=== PATIENT | male | born 1955 | race African-American/Black ===

== ENCOUNTER 2017-08-24 15:10 | Inpatient (IN) | payer MEDICARE, OTHER ==
[~2017-08-24] VITALS: Ht 165.1 cm; Wt 86.2 kg
[2017-08-24 16:21] LABS: Potassium 3.1 mmol/L (3.5-5.1)
[2017-08-24 16:25] LABS: Albumin 3.3 g/dL (3.4-5.0); BUN/Creatinine Ratio 14.2
[2017-08-24 16:33] LABS: Basophils # (auto) 0 uL; Basophils % (auto) 0.4 % (0.0-2.0); Eosinophils # (auto) 0 uL; Hematocrit 43.1 % (41.0-53.0); Hemoglobin 14.4 g/dL (13.5-17.5); Lymphocytes # (auto) 0.4 uL; Lymphocytes % (auto) 6.7 % (10.0-50.0); Mean Corpuscular Hemoglobin 27.3 pg (28.0-32.0); Mean Corpuscular Hgb Conc. 33.4 g/dL (32.0-36.0); Mean Corpuscular Volume 81.6 fL (80.0-100.0); Monocytes # (auto) 0.4 uL; Monocytes % (auto) 7.8 % (0.0-12.0); Neutrophils # (auto) 4.5 uL; Neutrophils % (auto) 85.1 % (37.0-80.0); Nucleated Red Blood Cells % 0.1 %; Platelet Count (auto) 187 10^3/uL (140-450); Red Blood Cells 5.28 10^6/uL (4.5-5.90); Red Cell Distribution Width 15.9 % (11.8-14.3); White Blood Cell 5.2 10^3/uL (4.4-10.8)
[2017-08-24 16:49] LABS: Bilirubin, Total 0.8 mg/dL (0.2-1.0); Total Protein 6.9 g/dL (6.4-8.2)
[2017-08-24 17:34] LABS: Magnesium 2.5 mg/dL (1.6-2.6)
[2017-08-24 17:57] LABS: INR 0.89 (0.9-1.15); Partial Thromboplastin Time 32.9 sec (22.64-33.71); Prothrombin Time 9.7 sec (9.37-12.3)
[2017-08-24 19:56] LABS: Urine Bacteria NONE SEEN /hpf (None Seen); Urine Blood TRACE /uL (Negative); Urine Hyaline Cast FEW /lpf (0 - 2); Urine Mucus FEW (None Seen); Urine Specific Gravity 1.023 (1.001-1.035); Urine WBC 54 /hpf (0 - 3)
[2017-08-24] MEDS ORDERED: cefTRIAXone 1GM/10ml IVPUSH 10 ML IV ONE (20:45)
[2017-08-24] MEDS ORDERED: DOCUSATE SOD 100 MG CAP PO PRN (20:45)
[2017-08-24] MEDS ORDERED: ASPirin-EC 81 mg tab PO ONE (20:45)
[2017-08-24] MEDS ORDERED: SODIUM CHLORIDE 0.9% 500 ML IV ONE (20:45)
[2017-08-24] MEDS ORDERED: TEMAZEPAM 15 MG CAP PO PRN (20:45)
[2017-08-24] MEDS ORDERED: NITROGLYCERIN 0.4 MG SL TAB SL PRN (20:45)
[2017-08-24] MEDS ORDERED: HYDROcodone-ACET 5/325MG TAB PO PRN (20:45)
[2017-08-24] MEDS ORDERED: POTASSIUM CHL 20 Meq TABLET PO ONE (20:45)
[2017-08-24] MEDS ORDERED: ONDANSETRON HCL 4 MG/2 ML VIAL IV PRN (20:45)
[2017-08-24] MEDS ORDERED: MORPHINE SULFATE 4 MG/ML SYR/VIAL IV PRN (20:45)
[2017-08-24] MEDS: SODIUM CHLORIDE 0.9% 1,000 ML IV SCH (21:05)
[2017-08-24 22:54] VITALS: BP 134/70
[2017-08-24 23:21] VITALS: BP 134/70
[2017-08-25 04:53] VITALS: BP 98/69
[2017-08-25 06:25] LABS: Basophils # (auto) 0 uL; Basophils % (auto) 0.4 % (0.0-2.0); Eosinophils # (auto) 0 uL; Eosinophils % (auto) 0.1 % (0.0-7.0); Hematocrit 41.3 % (41.0-53.0); Hemoglobin 13.5 g/dL (13.5-17.5); Lymphocytes # (auto) 0.4 uL; Lymphocytes % (auto) 6.6 % (10.0-50.0); Mean Corpuscular Hemoglobin 27.1 pg (28.0-32.0); Mean Corpuscular Hgb Conc. 32.6 g/dL (32.0-36.0); Mean Corpuscular Volume 83.4 fL (80.0-100.0); Monocytes # (auto) 0.5 uL; Monocytes % (auto) 8.9 % (0.0-12.0); Neutrophils # (auto) 4.7 uL; Nucleated Red Blood Cells % 0.2 %; Platelet Count (auto) 148 10^3/uL (140-450); Red Blood Cells 4.96 10^6/uL (4.5-5.90); Red Cell Distribution Width 16.1 % (11.8-14.3); White Blood Cell 5.5 10^3/uL (4.4-10.8)
[2017-08-25 06:41] LABS: Albumin 2.9 g/dL (3.4-5.0); BUN/Creatinine Ratio 21.5; Calcium 7.4 mg/dL (8.5-10.1); Potassium 3.3 mmol/L (3.5-5.1)
[2017-08-25 06:44] LABS: Bilirubin, Total 0.3 mg/dL (0.2-1.0); Total Protein 6.4 g/dL (6.4-8.2)
[2017-08-25 08:00] VITALS: BP 129/73
[2017-08-25 08:43] VITALS: BP 129/73
[2017-08-25] MEDS: cefTRIAXone 1GM/10ml IVPUSH 10 ML IV SCH (09:33)
[2017-08-25] MEDS: ENOXAPARIN SOD 40 MG/0.4 ML SYRINGE SC SCH (09:35)
[2017-08-25] MEDS: PANTOPRAZOLE 40 MG TAB PO SCH (09:36)
[2017-08-25] MEDS ORDERED: ENOXAPARIN SOD 30 MG/0.3 ML SYRINGE SC SCH (10:00)
[2017-08-25] MEDS ORDERED: POTASSIUM CHL 20 Meq TABLET PO ONE (10:45)
[2017-08-25] MEDS: SODIUM CHLORIDE 0.9% 1,000 ML IV SCH (11:27)
[2017-08-25] MEDS: ACETAMINOPHEN 325 MG TAB PO PRN ×2 (11:36→18:10)
[2017-08-25 13:00] VITALS: BP 114/76
[2017-08-25 17:10] VITALS: BP 134/90
[2017-08-25 22:00] VITALS: BP 121/84
[2017-08-25] MEDS ORDERED: ATORVASTATIN 20 MG TAB PO SCH (22:00)
[2017-08-26 05:00] VITALS: BP 126/75
[2017-08-26] MEDS: SODIUM CHLORIDE 0.9% 1,000 ML IV SCH (05:47)
[2017-08-26 06:29] LABS: Basophils # (auto) 0 uL; Basophils % (auto) 0.2 % (0.0-2.0); Eosinophils # (auto) 0 uL; Hematocrit 37.4 % (41.0-53.0); Hemoglobin 12.4 g/dL (13.5-17.5); Lymphocytes # (auto) 0.8 uL; Lymphocytes % (auto) 14.5 % (10.0-50.0); Mean Corpuscular Hemoglobin 27.4 pg (28.0-32.0); Mean Corpuscular Hgb Conc. 33.1 g/dL (32.0-36.0); Mean Corpuscular Volume 82.9 fL (80.0-100.0); Monocytes # (auto) 0.6 uL; Monocytes % (auto) 10.6 % (0.0-12.0); Neutrophils % (auto) 74.7 % (37.0-80.0); Platelet Count (auto) 131 10^3/uL (140-450); Red Blood Cells 4.51 10^6/uL (4.5-5.90); Red Cell Distribution Width 16.3 % (11.8-14.3); White Blood Cell 5.3 10^3/uL (4.4-10.8)
[2017-08-26 06:44] LABS: BUN/Creatinine Ratio 19.8; Calcium 7.7 mg/dL (8.5-10.1); Magnesium 2.3 mg/dL (1.6-2.6); Potassium 3.8 mmol/L (3.5-5.1)
[2017-08-26 08:51] VITALS: BP 130/87
[2017-08-26] MEDS: PANTOPRAZOLE 40 MG TAB PO SCH (09:15)
[2017-08-26] MEDS: ENOXAPARIN SOD 40 MG/0.4 ML SYRINGE SC SCH (09:15)
[2017-08-26] MEDS: cefTRIAXone 1GM/10ml IVPUSH 10 ML IV SCH (09:16)
[2017-08-26] MEDS ORDERED: LISINOPRIL 5 MG TAB PO SCH (12:00)
[2017-08-26] MEDS ORDERED: CARVEDILOL 3.125 MG TAB PO SCH (12:00)
[2017-08-26 12:19] VITALS: BP 126/62
== END 2017-08-26 13:45 | disposition home or self-care (01) | DRG 314 ==
LOC: ER 15:24 → TELE 15:25 → TELE-EAST 22:32
PROVIDERS: ADMIT Nurse Practitioner; ATTEND Internal Medicine
DX: I95.89 Other hypotension (principal); N17.0 Acute kidney failure with tubular necrosis; N39.0 Urinary tract infection, site not specified; E86.9 Volume depletion, unspecified; E87.6 Hypokalemia; E78.5 Hyperlipidemia, unspecified; I70.0 Atherosclerosis of aorta; J44.9 Chronic obstructive pulmonary disease, unspecified; I08.0 Rheumatic disorders of both mitral and aortic valves; G89.29 Other chronic pain; M54.9 Dorsalgia, unspecified; F17.210 Nicotine dependence, cigarettes, uncomplicated; Z82.49 Family history of ischemic heart disease and other diseases of the circulatory system
CPT/HCPCS: 36415; 71045; 80048; 80053; 81001; 82962; 83735; 83880; 84443; 84484; 85025; 85610; 85730; 93005; 93306; 94761; 96361; 96374

== ENCOUNTER 2017-09-02 12:35 | Inpatient (IN) | payer OTHER, MEDICAID ==
[~2017-09-02] VITALS: Ht 162.6 cm; Wt 79.1 kg
[2017-09-02 14:24] LABS: Basophils # (auto) 0 uL; Eosinophils # (auto) 0 uL; Eosinophils % (auto) 0.3 % (0.0-7.0); Hemoglobin 13.7 g/dL (13.5-17.5); Monocytes # (auto) 0.8 uL; Nucleated Red Blood Cells % 0.1 %; Platelet Count (auto) 389 10^3/uL (140-450)
[2017-09-02 14:26] LABS: Basophils % (auto) 0.2 % (0.0-2.0); Lymphocytes # (auto) 1.2 uL; Lymphocytes % (auto) 12.4 % (10.0-50.0); Mean Corpuscular Hemoglobin 26.8 pg (28.0-32.0); Mean Corpuscular Hgb Conc. 32.7 g/dL (32.0-36.0); Mean Corpuscular Volume 82.1 fL (80.0-100.0); Monocytes % (auto) 8.3 % (0.0-12.0); Neutrophils # (auto) 7.8 uL; Neutrophils % (auto) 78.8 % (37.0-80.0); Red Blood Cells 5.12 10^6/uL (4.5-5.90); White Blood Cell 9.9 10^3/uL (4.4-10.8)
[2017-09-02 14:54] LABS: Alanine Aminotransferase 23 U/L (16-61); Albumin 3.5 g/dL (3.4-5.0); Alkaline Phosphatase 82 U/L (45-117); Anion Gap 10 (5-15); Aspartate Aminotransferase 15 U/L (15-37); BUN/Creatinine Ratio 14.9; Bilirubin, Total 0.4 mg/dL (0.2-1.0); Blood Urea Nitrogen 14 mg/dL (7-18); Calcium 8.6 mg/dL (8.5-10.1); Carbon Dioxide 23 mmol/L (21-32); Chloride 106 mmol/L (98-107); GFR African American 105 mL/min; GFR Non-African American 87 mL/min; Glucose 90 mg/dL (74-106); Magnesium 2.7 mg/dL (1.6-2.6); Potassium 3.9 mmol/L (3.5-5.1); Sodium 139 mmol/L (136-145)
[2017-09-02] MEDS ORDERED: methylPREDNISolone SOD SUCC 125 MG/2 ML VL IV ONE (15:00)
[2017-09-02] MEDS ORDERED: FUROSEMIDE 40 MG/4 ML VIAL IV ONE (16:15)
[2017-09-02] MEDS ORDERED: POTASSIUM CHL 20 Meq TABLET PO ONE (16:45)
[2017-09-02] MEDS ORDERED: methylPREDNISolone SOD SUCC 40 MG/ML VL IV ONE (16:45)
[2017-09-02] MEDS ORDERED: LEVOFLOXACIN 500 MG TAB PO ONE (16:45)
[2017-09-02] MEDS ORDERED: FUROSEMIDE 40 MG TAB PO ONE (16:45)
[2017-09-02] MEDS: ALBUTEROL SULF 2.5 MG/0.5ML(0.5%) NEB SOLN NEB SCH ×2 (18:30→21:45)
[2017-09-02] MEDS: IPRATROPIUM BROM 0.5 MG/2.5ML INH SOL NEB SCH ×2 (18:30→21:50)
[2017-09-02] MEDS: CARVEDILOL 3.125 MG TAB PO SCH ×2 (22:00→23:59)
[2017-09-02] MEDS: methylPREDNISolone SOD SUCC 40 MG/ML VL IV SCH (22:00)
[2017-09-02] MEDS: ATORVASTATIN 20 MG TAB PO SCH (22:00)
[2017-09-03] VITALS (12 sets, daily range): BP systolic 130–163; BP diastolic 84–122
[2017-09-03] MEDS: CARVEDILOL 3.125 MG TAB PO SCH (00:04)
[2017-09-03] MEDS: ALBUTEROL SULF 2.5 MG/0.5ML(0.5%) NEB SOLN NEB SCH ×5 (06:11→22:48)
[2017-09-03] MEDS: IPRATROPIUM BROM 0.5 MG/2.5ML INH SOL NEB SCH ×5 (06:12→22:47)
[2017-09-03] MEDS: ASPirin 81 mg TAB PO SCH (09:00)
[2017-09-03] MEDS: LEVOFLOXACIN 500 MG TAB PO SCH (09:00)
[2017-09-03] MEDS: methylPREDNISolone SOD SUCC 40 MG/ML VL IV SCH ×2 (09:04→22:29)
[2017-09-03 09:09] LABS: BUN/Creatinine Ratio 21.5; Potassium 4.1 mmol/L (3.5-5.1)
[2017-09-03] MEDS ORDERED: POTASSIUM CHL 20 Meq TABLET PO SCH (10:00)
[2017-09-03] MEDS ORDERED: LISINOPRIL 5 MG TAB PO SCH (10:00)
[2017-09-03] MEDS ORDERED: FUROSEMIDE 40 MG TAB PO SCH (10:00)
[2017-09-03] MEDS ORDERED: cloNIDine HCL 0.1 MG TAB PO PRN (15:45)
[2017-09-03] MEDS: ATORVASTATIN 20 MG TAB PO SCH (22:29)
[2017-09-04] VITALS (7 sets, daily range): BP systolic 100–158; BP diastolic 56–114
[2017-09-04] MEDS: IPRATROPIUM BROM 0.5 MG/2.5ML INH SOL NEB SCH ×4 (06:24→19:29)
[2017-09-04] MEDS: ALBUTEROL SULF 2.5 MG/0.5ML(0.5%) NEB SOLN NEB SCH ×4 (06:24→19:29)
[2017-09-04 06:32] LABS: Basophils # (auto) 0 uL; Eosinophils # (auto) 0 uL; Hematocrit 39.3 % (41.0-53.0); Lymphocytes # (auto) 0.5 uL; Mean Corpuscular Hgb Conc. 32.9 g/dL (32.0-36.0); Monocytes # (auto) 0.3 uL
[2017-09-04 06:35] LABS: Hemoglobin 12.9 g/dL (13.5-17.5); Lymphocytes % (auto) 5.6 % (10.0-50.0); Mean Corpuscular Hemoglobin 27.2 pg (28.0-32.0); Mean Corpuscular Volume 82.6 fL (80.0-100.0); Monocytes % (auto) 3.3 % (0.0-12.0); Neutrophils # (auto) 8.7 uL; Neutrophils % (auto) 91.1 % (37.0-80.0); Nucleated Red Blood Cells % 0.1 %; Platelet Count (auto) 378 10^3/uL (140-450); Red Blood Cells 4.75 10^6/uL (4.5-5.90); Red Cell Distribution Width 16.3 % (11.8-14.3); White Blood Cell 9.6 10^3/uL (4.4-10.8)
[2017-09-04 06:59] LABS: BUN/Creatinine Ratio 23.8; Calcium 8.9 mg/dL (8.5-10.1); Potassium 4.2 mmol/L (3.5-5.1)
[2017-09-04] MEDS ORDERED: cloNIDine HCL 0.1 MG TAB PO PRN (10:15)
[2017-09-04] MEDS ORDERED: LISINOPRIL 5 MG TAB PO ONE (10:15)
[2017-09-04] MEDS: LEVOFLOXACIN 500 MG TAB PO SCH (10:37)
[2017-09-04] MEDS: ASPirin 81 mg TAB PO SCH (10:37)
[2017-09-04] MEDS: CARVEDILOL 3.125 MG TAB PO SCH ×2 (10:37→21:24)
[2017-09-04] MEDS: predniSONE 20 MG TAB PO SCH (10:37)
[2017-09-04] MEDS: NIFEdipine ER 30 MG TAB PO SCH (10:38)
[2017-09-04] MEDS: LISINOPRIL 5 MG TAB PO SCH (10:39)
[2017-09-04] MEDS: ATORVASTATIN 20 MG TAB PO SCH (21:23)
[2017-09-05] MEDS: ALBUTEROL SULF 2.5 MG/0.5ML(0.5%) NEB SOLN NEB SCH ×2 (04:40→10:23)
[2017-09-05] MEDS: IPRATROPIUM BROM 0.5 MG/2.5ML INH SOL NEB SCH ×2 (04:40→10:23)
[2017-09-05 05:19] VITALS: BP 125/91
[2017-09-05 06:34] LABS: BUN/Creatinine Ratio 21.4; Calcium 8.3 mg/dL (8.5-10.1); Potassium 3.9 mmol/L (3.5-5.1)
[2017-09-05 08:00] VITALS: BP 138/93
[2017-09-05 09:00] VITALS: BP 138/93
[2017-09-05] MEDS ORDERED: ALPRAZolam 0.25 MG TAB PO ONE (10:00)
[2017-09-05] MEDS: NIFEdipine ER 30 MG TAB PO SCH (10:20)
[2017-09-05] MEDS: LISINOPRIL 5 MG TAB PO SCH (10:21)
[2017-09-05] MEDS: ASPirin 81 mg TAB PO SCH (10:21)
[2017-09-05] MEDS: predniSONE 20 MG TAB PO SCH (10:21)
[2017-09-05] MEDS: CARVEDILOL 3.125 MG TAB PO SCH (10:22)
[2017-09-05] MEDS: LEVOFLOXACIN 500 MG TAB PO SCH (10:22)
== END 2017-09-05 14:04 | disposition home or self-care (01) | DRG 291 ==
LOC: ER 12:35 → OVERFLOW 12:36 → CENTRAL 09-03 02:25
PROVIDERS: ADMIT Internal Medicine; ATTEND Internal Medicine
DX: I11.0 Hypertensive heart disease with heart failure (principal); J96.00 Acute respiratory failure, unspecified whether with hypoxia or hypercapnia; J44.1 Chronic obstructive pulmonary disease with (acute) exacerbation; E78.5 Hyperlipidemia, unspecified; I50.33 Acute on chronic diastolic (congestive) heart failure; F41.9 Anxiety disorder, unspecified; F17.210 Nicotine dependence, cigarettes, uncomplicated; F12.90 Cannabis use, unspecified, uncomplicated; Z79.899 Other long term (current) drug therapy; Z82.49 Family history of ischemic heart disease and other diseases of the circulatory system
CPT/HCPCS: 36415; 71046; 80048; 80053; 83735; 83880; 84484; 85025; 85379; 87081; 87804; 93005; 94640; 96374; 96375

== ENCOUNTER 2017-12-02 12:14 | Emergency (ER) | payer OTHER, MEDICAID ==
[~2017-12-02] VITALS: Ht 160 cm; Wt 86.2 kg
[2017-12-02 13:26] LABS: Basophils # (auto) 0 uL; Basophils % (auto) 0.3 % (0.0-2.0); Eosinophils # (auto) 0.2 uL; Eosinophils % (auto) 1.7 % (0.0-7.0); Hematocrit 41.8 % (41.0-53.0); Hemoglobin 13.8 g/dL (13.5-17.5); Lymphocytes # (auto) 1.6 uL; Lymphocytes % (auto) 14.5 % (10.0-50.0); Mean Corpuscular Hemoglobin 27.4 pg (28.0-32.0); Mean Corpuscular Hgb Conc. 33.1 g/dL (32.0-36.0); Mean Corpuscular Volume 82.8 fL (80.0-100.0); Monocytes % (auto) 9.3 % (0.0-12.0); Neutrophils % (auto) 74.2 % (37.0-80.0); Nucleated Red Blood Cells % 0.1 %; Platelet Count (auto) 225 10^3/uL (140-450); Red Blood Cells 5.05 10^6/uL (4.5-5.90); Red Cell Distribution Width 15.6 % (11.8-14.3); White Blood Cell 10.8 10^3/uL (4.4-10.8)
[2017-12-02 13:52] LABS: Alanine Aminotransferase 18 U/L (16-61); Albumin 3.8 g/dL (3.4-5.0); Alkaline Phosphatase 104 U/L (45-117); Anion Gap 11 (5-15); Aspartate Aminotransferase 10 U/L (15-37); BUN/Creatinine Ratio 15.7; Bilirubin, Total 0.5 mg/dL (0.2-1.0); Blood Urea Nitrogen 19 mg/dL (7-18); Carbon Dioxide 26 mmol/L (21-32); Chloride 102 mmol/L (98-107); GFR African American 79 mL/min; GFR Non-African American 65 mL/min; Glucose 88 mg/dL (74-106); Potassium 3.6 mmol/L (3.5-5.1); Sodium 139 mmol/L (136-145); Total Protein 8.2 g/dL (6.4-8.2)
[2017-12-02 14:55] VITALS: BP 109/84
== END 2017-12-02 15:21 | disposition home or self-care (01) ==
LOC: ER 12:14
DX: R07.89 Other chest pain (principal); E78.5 Hyperlipidemia, unspecified; J44.9 Chronic obstructive pulmonary disease, unspecified; F17.210 Nicotine dependence, cigarettes, uncomplicated; I12.9 Hypertensive chronic kidney disease with stage 1 through stage 4 chronic kidney disease, or unspecified chronic kidney disease; N18.9 Chronic kidney disease, unspecified
CPT/HCPCS: 36415; 71046; 80053; 83880; 84484; 85025; 93005

== ENCOUNTER 2018-02-13 18:35 | Inpatient (IN) | payer OTHER, MEDICAID ==
[~2018-02-13] VITALS: Ht 162.6 cm; Wt 92.0 kg
[2018-02-13] MEDS ORDERED: ACETAMINOPHEN 325 MG TAB PO ONE (19:00)
[2018-02-13 19:51] LABS: Basophils # (auto) 0 uL; Basophils % (auto) 0.1 % (0.0-2.0); Eosinophils # (auto) 0.1 uL; Eosinophils % (auto) 0.6 % (0.0-7.0); Hematocrit 33.3 % (41.0-53.0); Hemoglobin 11.3 g/dL (13.5-17.5); Lymphocytes # (auto) 0.9 uL; Lymphocytes % (auto) 6.6 % (10.0-50.0); Mean Corpuscular Hemoglobin 27.4 pg (28.0-32.0); Mean Corpuscular Hgb Conc. 34.1 g/dL (32.0-36.0); Mean Corpuscular Volume 80.5 fL (80.0-100.0); Monocytes # (auto) 1.3 uL; Monocytes % (auto) 9.9 % (0.0-12.0); Neutrophils # (auto) 11.2 uL; Neutrophils % (auto) 82.8 % (37.0-80.0); Platelet Count (auto) 246 10^3/uL (140-450); Red Blood Cells 4.14 10^6/uL (4.5-5.90); Red Cell Distribution Width 16.3 % (11.8-14.3); White Blood Cell 13.5 10^3/uL (4.4-10.8)
[2018-02-13 20:08] LABS: Alanine Aminotransferase 15 U/L (16-61); Albumin 2.8 g/dL (3.4-5.0); Alkaline Phosphatase 88 U/L (45-117); Anion Gap 11 (5-15); Aspartate Aminotransferase 12 U/L (15-37); BUN/Creatinine Ratio 15.2; Bilirubin, Total 0.3 mg/dL (0.2-1.0); Blood Urea Nitrogen 25 mg/dL (7-18); Calcium 8.4 mg/dL (8.5-10.1); Carbon Dioxide 26 mmol/L (21-32); Chloride 101 mmol/L (98-107); GFR African American 55 mL/min; GFR Non-African American 45 mL/min; Glucose 119 mg/dL (74-106); Potassium 3.6 mmol/L (3.5-5.1); Sodium 138 mmol/L (136-145); Total Protein 7.7 g/dL (6.4-8.2)
[2018-02-13] MEDS ORDERED: IPRATROPIUM BROM 0.5 MG/2.5ML INH SOL NEB ONE (21:45)
[2018-02-13] MEDS ORDERED: ALBUTEROL SULF 2.5 MG/0.5ML(0.5%) NEB SOLN NEB ONE (21:45)
[2018-02-14] VITALS (7 sets, daily range): BP systolic 93–113; BP diastolic 62–75
[2018-02-14] MEDS ORDERED: cefTRIAXone 1GM/10ml IVPUSH 10 ML IV ONE (00:45)
[2018-02-14] MEDS ORDERED: AZITHROMYCIN 500MG/ 250ML 250 ML IV ONE (00:45)
[2018-02-14] MEDS ORDERED: ONDANSETRON HCL 4 MG/2 ML VIAL IV PRN (00:45)
[2018-02-14] MEDS ORDERED: TEMAZEPAM 15 MG CAP PO PRN (00:45)
[2018-02-14] MEDS: IPRATROPIUM BROM 0.5 MG/2.5ML INH SOL NEB SCH ×6 (02:00→22:40)
[2018-02-14] MEDS: PANTOPRAZOLE 40 MG TAB PO SCH (06:32)
[2018-02-14] MEDS: HYDROcodone-ACET 5/325MG TAB PO PRN ×2 (06:39→12:13)
[2018-02-14] MEDS: CARVEDILOL 3.125 MG TAB PO SCH ×2 (08:00→18:26)
[2018-02-14] MEDS: NIFEdipine ER 30 MG TAB PO SCH (10:00)
[2018-02-14] MEDS: LISINOPRIL 5 MG TAB PO SCH (10:00)
[2018-02-14] MEDS: FUROSEMIDE 20 MG TAB PO SCH (10:00)
[2018-02-14] MEDS ORDERED: LACTULOSE 20Gm/30ML SOLN PO ONE ×2 (14:00→14:15)
[2018-02-14] MEDS ORDERED: LACTULOSE 20Gm/30ML SOLN PO PRN (14:15)
[2018-02-14] MEDS: ACETAMINOPHEN 325 MG TAB PO PRN (16:01)
[2018-02-14] MEDS: TAMSULOSIN HYDROCHLORIDE 0.4 MG CAP PO SCH (18:27)
[2018-02-14] MEDS: ALBUTEROL SULF 2.5 MG/0.5ML(0.5%) NEB SOLN NEB PRN ×2 (18:28→22:40)
[2018-02-14] MEDS: AZITHROMYCIN 500MG/ 250ML 250 ML IV SCH (21:18)
[2018-02-14] MEDS: cefTRIAXone 1GM/10ml IVPUSH 10 ML IV SCH (21:18)
[2018-02-14] MEDS ORDERED: PATIENTS OWN MEDICATION (simvastatin 20 MG) PO SCH (22:00)
[2018-02-14] MEDS: PRAVASTATIN SODIUM 20 MG TAB PO SCH (22:06)
[2018-02-15] MEDS: ALBUTEROL SULF 2.5 MG/0.5ML(0.5%) NEB SOLN NEB PRN (02:36)
[2018-02-15] MEDS: IPRATROPIUM BROM 0.5 MG/2.5ML INH SOL NEB SCH ×6 (02:36→22:08)
[2018-02-15 04:39] VITALS: BP 128/85
[2018-02-15 06:31] LABS: Basophils # (auto) 0 uL; Basophils % (auto) 0.2 % (0.0-2.0); Eosinophils # (auto) 0.2 uL; Eosinophils % (auto) 1.5 % (0.0-7.0); Hematocrit 32.5 % (41.0-53.0); Hemoglobin 10.9 g/dL (13.5-17.5); Lymphocytes # (auto) 0.7 uL; Lymphocytes % (auto) 6.7 % (10.0-50.0); Mean Corpuscular Hemoglobin 27.2 pg (28.0-32.0); Mean Corpuscular Hgb Conc. 33.6 g/dL (32.0-36.0); Mean Corpuscular Volume 80.8 fL (80.0-100.0); Monocytes # (auto) 0.9 uL; Monocytes % (auto) 8.7 % (0.0-12.0); Neutrophils # (auto) 8.9 uL; Neutrophils % (auto) 82.9 % (37.0-80.0); Platelet Count (auto) 265 10^3/uL (140-450); Red Blood Cells 4.02 10^6/uL (4.5-5.90); Red Cell Distribution Width 16.3 % (11.8-14.3); White Blood Cell 10.8 10^3/uL (4.4-10.8)
[2018-02-15 06:56] LABS: Albumin 2.5 g/dL (3.4-5.0); BUN/Creatinine Ratio 16.5; Bilirubin, Total 0.3 mg/dL (0.2-1.0); Calcium 8.3 mg/dL (8.5-10.1); Potassium 3.1 mmol/L (3.5-5.1); Total Protein 7.1 g/dL (6.4-8.2)
[2018-02-15] MEDS: PANTOPRAZOLE 40 MG TAB PO SCH (07:06)
[2018-02-15] MEDS: CARVEDILOL 3.125 MG TAB PO SCH ×2 (08:00→17:53)
[2018-02-15 09:00] VITALS: BP_SYST 108; BP_SYST 125; BP_SYST 136; BP_DIAS 78; BP_DIAS 81; BP_DIAS 98
[2018-02-15] MEDS: ACETAMINOPHEN 325 MG TAB PO PRN (09:19)
[2018-02-15] MEDS ORDERED: POTASSIUM CHL 20 Meq TABLET PO ONE (09:45)
[2018-02-15] MEDS ORDERED: VANCOMYCIN 1GM/250ML 250 ML IV ONE (10:00)
[2018-02-15] MEDS: SODIUM CHLORIDE 0.9% 1,000 ML IV SCH ×2 (10:00→21:34)
[2018-02-15] MEDS: LISINOPRIL 5 MG TAB PO SCH (10:00)
[2018-02-15] MEDS: NIFEdipine ER 30 MG TAB PO SCH (10:00)
[2018-02-15] MEDS ORDERED: VANCOMYCIN PER PHARMACY 0 MG IV SCH (10:00)
[2018-02-15] MEDS: FUROSEMIDE 20 MG TAB PO SCH (10:00)
[2018-02-15] MEDS: VANCOMYCIN 1,500 MG in D5W 5% 250 ML IV SCH (11:12)
[2018-02-15 13:00] VITALS: BP 131/86
[2018-02-15 17:00] VITALS: BP 134/97
[2018-02-15] MEDS: TAMSULOSIN HYDROCHLORIDE 0.4 MG CAP PO SCH (17:52)
[2018-02-15] MEDS: cefTRIAXone 1GM/10ml IVPUSH 10 ML IV SCH (21:34)
[2018-02-15] MEDS: AZITHROMYCIN 500MG/ 250ML 250 ML IV SCH (21:35)
[2018-02-15] MEDS: PRAVASTATIN SODIUM 20 MG TAB PO SCH (21:36)
[2018-02-15] MEDS: LACTULOSE 20Gm/30ML SOLN PO SCH (21:36)
[2018-02-15 22:00] VITALS: BP 131/93
[2018-02-16] MEDS: VANCOMYCIN 1,500 MG in D5W 5% 250 ML IV SCH ×3 (00:23→22:58)
[2018-02-16] MEDS: IPRATROPIUM BROM 0.5 MG/2.5ML INH SOL NEB SCH ×6 (02:13→22:30)
[2018-02-16 04:48] VITALS: BP 124/91
[2018-02-16] MEDS: SODIUM CHLORIDE 0.9% 1,000 ML IV SCH (06:12)
[2018-02-16] MEDS: PANTOPRAZOLE 40 MG TAB PO SCH (06:13)
[2018-02-16 06:35] LABS: Basophils # (auto) 0 uL; Basophils % (auto) 0.2 % (0.0-2.0); Eosinophils # (auto) 0.3 uL; Eosinophils % (auto) 3.5 % (0.0-7.0); Hematocrit 32.2 % (41.0-53.0); Hemoglobin 10.7 g/dL (13.5-17.5); Lymphocytes # (auto) 1.1 uL; Lymphocytes % (auto) 12.4 % (10.0-50.0); Mean Corpuscular Hemoglobin 27.2 pg (28.0-32.0); Mean Corpuscular Hgb Conc. 33.2 g/dL (32.0-36.0); Monocytes # (auto) 1.1 uL; Monocytes % (auto) 12.5 % (0.0-12.0); Neutrophils # (auto) 6.1 uL; Neutrophils % (auto) 71.4 % (37.0-80.0); Nucleated Red Blood Cells % 0.1 %; Platelet Count (auto) 266 10^3/uL (140-450); Red Blood Cells 3.93 10^6/uL (4.5-5.90); Red Cell Distribution Width 16.5 % (11.8-14.3); White Blood Cell 8.5 10^3/uL (4.4-10.8)
[2018-02-16 06:57] LABS: Albumin 2.4 g/dL (3.4-5.0); BUN/Creatinine Ratio 15.6; Bilirubin, Total 0.2 mg/dL (0.2-1.0); Calcium 8.2 mg/dL (8.5-10.1); Potassium 3.7 mmol/L (3.5-5.1); Total Protein 6.8 g/dL (6.4-8.2)
[2018-02-16] MEDS: CARVEDILOL 3.125 MG TAB PO SCH ×2 (08:50→17:38)
[2018-02-16 09:00] VITALS: BP 132/91
[2018-02-16] MEDS ORDERED: methylPREDNISolone SOD SUCC 125 MG/2 ML VL IV ONE (12:00)
[2018-02-16] MEDS: FUROSEMIDE 20 MG TAB PO SCH (12:15)
[2018-02-16] MEDS: LISINOPRIL 5 MG TAB PO SCH (12:30)
[2018-02-16 13:00] VITALS: BP 146/102
[2018-02-16] MEDS: NIFEdipine ER 30 MG TAB PO SCH (14:30)
[2018-02-16 17:00] VITALS: BP 147/100
[2018-02-16] MEDS: TAMSULOSIN HYDROCHLORIDE 0.4 MG CAP PO SCH (17:38)
[2018-02-16] MEDS: ALBUTEROL SULF 2.5 MG/0.5ML(0.5%) NEB SOLN NEB PRN ×2 (18:33→22:30)
[2018-02-16 22:00] VITALS: BP 140/90
[2018-02-16] MEDS: LACTULOSE 20Gm/30ML SOLN PO SCH (22:00)
[2018-02-16] MEDS: PRAVASTATIN SODIUM 20 MG TAB PO SCH (22:57)
[2018-02-16] MEDS: AZITHROMYCIN 500MG/ 250ML 250 ML IV SCH (22:57)
[2018-02-16] MEDS: cefTRIAXone 1GM/10ml IVPUSH 10 ML IV SCH (22:57)
[2018-02-17 01:29] VITALS: BP 140/90
[2018-02-17] MEDS: IPRATROPIUM BROM 0.5 MG/2.5ML INH SOL NEB SCH ×6 (02:33→21:59)
[2018-02-17] MEDS: ALBUTEROL SULF 2.5 MG/0.5ML(0.5%) NEB SOLN NEB PRN ×4 (02:33→18:29)
[2018-02-17 05:00] VITALS: BP 130/94
[2018-02-17] MEDS: PANTOPRAZOLE 40 MG TAB PO SCH (06:39)
[2018-02-17 07:31] LABS: Basophils # (auto) 0 uL; Basophils % (auto) 0.1 % (0.0-2.0); Eosinophils # (auto) 0 uL; Mean Corpuscular Hemoglobin 26.9 pg (28.0-32.0); White Blood Cell 11.5 10^3/uL (4.4-10.8)
[2018-02-17 07:34] LABS: Hematocrit 32.2 % (41.0-53.0); Hemoglobin 10.7 g/dL (13.5-17.5); Lymphocytes # (auto) 0.7 uL; Lymphocytes % (auto) 5.7 % (10.0-50.0); Mean Corpuscular Hgb Conc. 33.2 g/dL (32.0-36.0); Mean Corpuscular Volume 80.9 fL (80.0-100.0); Monocytes # (auto) 0.8 uL; Monocytes % (auto) 7.4 % (0.0-12.0); Neutrophils % (auto) 86.8 % (37.0-80.0); Platelet Count (auto) 344 10^3/uL (140-450); Red Blood Cells 3.98 10^6/uL (4.5-5.90); Red Cell Distribution Width 16.3 % (11.8-14.3)
[2018-02-17 07:50] LABS: Albumin 2.6 g/dL (3.4-5.0); BUN/Creatinine Ratio 18.2; Bilirubin, Total 0.2 mg/dL (0.2-1.0); Calcium 8.8 mg/dL (8.5-10.1); Potassium 4.1 mmol/L (3.5-5.1); Total Protein 7.2 g/dL (6.4-8.2)
[2018-02-17] MEDS: CARVEDILOL 3.125 MG TAB PO SCH ×2 (08:00→17:26)
[2018-02-17 09:00] VITALS: BP 113/66
[2018-02-17] MEDS ORDERED: ADENOSINE 79 MG in GIVE UN-DILUTED 0 ML IV ONE (09:15)
[2018-02-17] MEDS: NIFEdipine ER 30 MG TAB PO SCH (09:36)
[2018-02-17] MEDS: LISINOPRIL 5 MG TAB PO SCH (09:36)
[2018-02-17] MEDS: methylPREDNISolone SOD SUCC 125 MG/2 ML VL IV SCH (09:36)
[2018-02-17] MEDS: FUROSEMIDE 20 MG TAB PO SCH (09:36)
[2018-02-17] MEDS: VANCOMYCIN 1,500 MG in D5W 5% 250 ML IV SCH ×2 (11:00→22:45)
[2018-02-17 13:18] VITALS: BP 139/97
[2018-02-17] MEDS ORDERED: IPRATROPIUM BROM 0.5 MG/2.5ML INH SOL ONE (13:22)
[2018-02-17 16:09] VITALS: BP 121/88
[2018-02-17] MEDS: TAMSULOSIN HYDROCHLORIDE 0.4 MG CAP PO SCH (17:27)
[2018-02-17] MEDS: AZITHROMYCIN 500MG/ 250ML 250 ML IV SCH (21:13)
[2018-02-17] MEDS: cefTRIAXone 1GM/10ml IVPUSH 10 ML IV SCH (21:13)
[2018-02-17 22:00] VITALS: BP 125/88
[2018-02-17] MEDS: LACTULOSE 20Gm/30ML SOLN PO SCH (22:00)
[2018-02-17] MEDS: PRAVASTATIN SODIUM 20 MG TAB PO SCH (22:45)
[2018-02-18] MEDS: IPRATROPIUM BROM 0.5 MG/2.5ML INH SOL NEB SCH ×4 (02:00→13:57)
[2018-02-18 05:41] VITALS: BP 135/94
[2018-02-18] MEDS: PANTOPRAZOLE 40 MG TAB PO SCH (06:17)
[2018-02-18 07:21] LABS: Basophils # (auto) 0 uL; Basophils % (auto) 0.1 % (0.0-2.0); Eosinophils # (auto) 0 uL; Lymphocytes # (auto) 0.9 uL; Platelet Count (auto) 385 10^3/uL (140-450)
[2018-02-18 07:24] LABS: Eosinophils % (auto) 0.1 % (0.0-7.0); Hematocrit 32.8 % (41.0-53.0); Hemoglobin 10.5 g/dL (13.5-17.5); Lymphocytes % (auto) 6.3 % (10.0-50.0); Mean Corpuscular Hemoglobin 26.1 pg (28.0-32.0); Mean Corpuscular Hgb Conc. 31.9 g/dL (32.0-36.0); Monocytes # (auto) 1.4 uL; Monocytes % (auto) 9.2 % (0.0-12.0); Neutrophils # (auto) 12.4 uL; Neutrophils % (auto) 84.3 % (37.0-80.0); Nucleated Red Blood Cells % 0.2 %; Red Cell Distribution Width 16.6 % (11.8-14.3); White Blood Cell 14.8 10^3/uL (4.4-10.8)
[2018-02-18 07:39] LABS: BUN/Creatinine Ratio 24.4; Calcium 8.3 mg/dL (8.5-10.1)
[2018-02-18 08:55] VITALS: BP 141/91
[2018-02-18] MEDS: CARVEDILOL 3.125 MG TAB PO SCH (10:13)
[2018-02-18] MEDS: NIFEdipine ER 30 MG TAB PO SCH (10:51)
[2018-02-18] MEDS: LISINOPRIL 5 MG TAB PO SCH (10:52)
[2018-02-18] MEDS: FUROSEMIDE 20 MG TAB PO SCH (10:53)
[2018-02-18] MEDS: methylPREDNISolone SOD SUCC 125 MG/2 ML VL IV SCH (10:53)
[2018-02-18 12:35] VITALS: BP 152/102
[2018-02-18 14:04] VITALS: BP 141/91
[2018-02-18] MEDS ORDERED: VANCOMYCIN 1GM/250ML 250 ML IV SCH (23:00)
[2018-02-25] MEDS ORDERED: POTA10TA51 PO (21:19)
[2018-02-25] MEDS ORDERED: SIMV-8 PO (21:19)
[2018-02-25] MEDS ORDERED: TAMS0.4C36 PO (21:19)
[2018-02-25] MEDS ORDERED: CAR3125T PO (21:19)
[2018-02-25] MEDS ORDERED: FURO40TA PO (21:19)
[2018-02-28] MEDS ORDERED: SUCR1TAB38 OR (13:45)
[2018-02-28] MEDS ORDERED: PANT40T PO (13:45)
== END 2018-02-18 15:40 | disposition home or self-care (01) | DRG 871 ==
LOC: ER 18:35 → MERGE 18:36 → OVERFLOW 18:36 → WEST WING 02-14 01:47
PROVIDERS: ADMIT Nurse Practitioner; ATTEND Family Medicine
DX: A41.9 Sepsis, unspecified organism (principal); J18.1 Lobar pneumonia, unspecified organism; I50.43 Acute on chronic combined systolic (congestive) and diastolic (congestive) heart failure; J44.1 Chronic obstructive pulmonary disease with (acute) exacerbation; I13.0 Hypertensive heart and chronic kidney disease with heart failure and stage 1 through stage 4 chronic kidney disease, or unspecified chronic kidney disease; J44.0 Chronic obstructive pulmonary disease with (acute) lower respiratory infection; N18.3 Chronic kidney disease, stage 3 (moderate); E11.22 Type 2 diabetes mellitus with diabetic chronic kidney disease; E78.00 Pure hypercholesterolemia, unspecified; F12.10 Cannabis abuse, uncomplicated; I25.10 Atherosclerotic heart disease of native coronary artery without angina pectoris; N40.0 Benign prostatic hyperplasia without lower urinary tract symptoms; Z88.8 Allergy status to other drugs, medicaments and biological substances; Z79.899 Other long term (current) drug therapy
CPT/HCPCS: 36415; 71045; 78452; 80048; 80053; 80202; 83880; 84484; 85025; 87040; 87070; 87205; 93005; 93017; 94640; 96374; 96375; A6257; J0153; J0696; J7060

== ENCOUNTER 2018-07-21 11:11 | Emergency (ER) | payer OTHER, MEDICAID ==
[~2018-07-21] VITALS: Ht 165.1 cm; Wt 89.4 kg
[~2018-07-21 11:11] MED LIST: CAR3125T PO; FURO40TA PO; PANT40T PO; POTA10TA51 PO; SIMV-8 PO; SUCR1TAB38 OR; TAMS0.4C36 PO
[2018-07-21 11:20] VITALS: BP 157/90
== END 2018-07-21 17:01 | disposition home or self-care (01) ==
LOC: ER 11:11
DX: J02.9 Acute pharyngitis, unspecified (principal); J44.9 Chronic obstructive pulmonary disease, unspecified; E78.5 Hyperlipidemia, unspecified; I12.9 Hypertensive chronic kidney disease with stage 1 through stage 4 chronic kidney disease, or unspecified chronic kidney disease; N18.9 Chronic kidney disease, unspecified
CPT/HCPCS: 71046

== ENCOUNTER 2022-10-22 10:32 | Inpatient (IN) | payer OTHER, MEDICAID ==
[~2022-10-22] VITALS: Ht 160 cm; Wt 92.4 kg
[~2022-10-22 10:32] MED LIST changes: +FURO1TAB31 PO; -FURO40TA PO; +SUCR1TAB22 OR; -SUCR1TAB38 OR
[2022-10-22] MEDS ORDERED: IPRATROPIUM BROM 0.5 MG/2.5ML INH SOL HHN ONE (11:30)
[2022-10-22] MEDS ORDERED: ALBUTEROL SULF 2.5 MG/0.5ML(0.5%) NEB SOLN HHN ONE (11:30)
[2022-10-22] MEDS ORDERED: methylPREDNISolone SOD SUCC 125 MG/2 ML VL IV ONE (11:30)
[2022-10-22 11:36] LABS: Basophils # (auto) 0 10 ^3/uL (0-0.2); Basophils % (auto) 0.2 % (0.0-2.0); Eosinophils # (auto) 0.3 10 ^3/uL (0-0.8); Eosinophils % (auto) 2.4 % (0.0-7.0); Hematocrit 40.4 % (41.0-53.0); Hemoglobin 13.5 g/dL (13.5-17.5); Lymphocytes # (auto) 1.5 10 ^3/uL (0.4-5.4); Lymphocytes % (auto) 13.6 % (10.0-50.0); Mean Corpuscular Hemoglobin 27.1 pg (28.0-32.0); Mean Corpuscular Hgb Conc. 33.5 g/dL (32.0-36.0); Monocytes # (auto) 0.9 10 ^3/uL (0-1.3); Monocytes % (auto) 8.6 % (0.0-12.0); Neutrophils # (auto) 8.1 10 ^3/uL (1.6-8.6); Neutrophils % (auto) 75.2 % (37.0-80.0); Nucleated Red Blood Cells % 0.1 %; Red Blood Cells 4.99 10^6/uL (4.5-5.90); Red Cell Distribution Width 16.2 % (11.8-14.3); White Blood Cell 10.8 10^3/uL (4.4-10.8)
[2022-10-22 11:52] LABS: Albumin 3.5 g/dL (3.4-5.0); BUN/Creatinine Ratio 14.3 (10.0-20.0); Magnesium 2.2 mg/dL (1.6-2.6); Potassium 3.8 mmol/L (3.5-5.1)
[2022-10-22 11:55] LABS: Bilirubin, Total 0.3 mg/dL (0.2-1.0)
[2022-10-22] MEDS ORDERED: ACETAMINOPHEN 325 MG TAB PO PRN (16:45)
[2022-10-22] MEDS ORDERED: ALBUTEROL SULF 2.5 MG/0.5ML(0.5%) NEB SOLN NEB PRN (16:45)
[2022-10-22 17:42] LABS: Cholesterol 232 mg/dL (< 200); HDL Cholesterol 63 mg/dL (40-59); LDL Cholesterol 142 mg/dL (< 100); Triglycerides 129 mg/dL (< 150)
[2022-10-22] MEDS: SODIUM CHLORIDE 0.9% 1,000 ML IV SCH (17:42)
[2022-10-22] MEDS: SUCRALFATE 1 GM TAB PO SCH ×2 (17:51→21:08)
[2022-10-22] MEDS: TAMSULOSIN HYDROCHLORIDE 0.4 MG CAP PO SCH (17:51)
[2022-10-22] MEDS: ALBUTEROL SULF 2.5 MG/0.5ML(0.5%) NEB SOLN NEB SCH ×2 (18:00→23:29)
[2022-10-22] MEDS: IPRATROPIUM BROM 0.5 MG/2.5ML INH SOL NEB SCH ×2 (18:00→23:29)
[2022-10-22] MEDS: hydrALAZINE HCL 20 MG/ML VL IV PRN (19:27)
[2022-10-22 20:35] VITALS: BP 152/101
[2022-10-22] MEDS: methylPREDNISolone SOD SUCC 125 MG/2 ML VL IV SCH (21:08)
[2022-10-22] MEDS: PANTOPRAZOLE 40 MG TAB PO SCH (21:09)
[2022-10-22] MEDS: CARVEDILOL 3.125 MG TAB PO SCH (21:10)
[2022-10-22 22:00] VITALS: BP 156/112
[2022-10-22 23:32] VITALS: BP 171/95
[2022-10-23] MEDS: ALBUTEROL SULF 2.5 MG/0.5ML(0.5%) NEB SOLN NEB SCH ×6 (02:00→22:20)
[2022-10-23] MEDS: IPRATROPIUM BROM 0.5 MG/2.5ML INH SOL NEB SCH ×6 (02:00→22:20)
[2022-10-23 05:00] VITALS: BP 155/102
[2022-10-23] MEDS: SUCRALFATE 1 GM TAB PO SCH ×5 (05:46→22:00)
[2022-10-23] MEDS: hydrALAZINE HCL 20 MG/ML VL IV PRN (05:47)
[2022-10-23 06:32] LABS: Basophils # (auto) 0 10 ^3/uL (0-0.2); Eosinophils # (auto) 0 10 ^3/uL (0-0.8); Hemoglobin 13.1 g/dL (13.5-17.5); Monocytes # (auto) 0.4 10 ^3/uL (0-1.3); Red Blood Cells 4.89 10^6/uL (4.5-5.90)
[2022-10-23 06:34] LABS: Hematocrit 39.2 % (41.0-53.0); Lymphocytes # (auto) 0.9 10 ^3/uL (0.4-5.4); Lymphocytes % (auto) 9.6 % (10.0-50.0); Mean Corpuscular Hemoglobin 26.8 pg (28.0-32.0); Mean Corpuscular Hgb Conc. 33.4 g/dL (32.0-36.0); Mean Corpuscular Volume 80.3 fL (80.0-100.0); Monocytes % (auto) 4.9 % (0.0-12.0); Neutrophils # (auto) 7.7 10 ^3/uL (1.6-8.6); Neutrophils % (auto) 85.5 % (37.0-80.0); Red Cell Distribution Width 15.7 % (11.8-14.3); White Blood Cell 9.1 10^3/uL (4.4-10.8)
[2022-10-23 06:38] LABS: Potassium 3.7 mmol/L (3.5-5.1)
[2022-10-23 06:47] LABS: Albumin 3.2 g/dL (3.4-5.0); BUN/Creatinine Ratio 19.1 (10.0-20.0); Bilirubin, Total 0.5 mg/dL (0.2-1.0); Calcium 8.9 mg/dL (8.5-10.1)
[2022-10-23 08:37] VITALS: BP 145/99
[2022-10-23] MEDS: SODIUM CHLORIDE 0.9% 1,000 ML IV SCH (09:25)
[2022-10-23] MEDS: ATORVASTATIN 20 MG TAB PO SCH (10:41)
[2022-10-23] MEDS: CARVEDILOL 3.125 MG TAB PO SCH ×2 (10:42→22:04)
[2022-10-23] MEDS: POTASSIUM CHL 20 Meq TABLET PO SCH (10:42)
[2022-10-23] MEDS: ENOXAPARIN SOD 40 MG/0.4 ML SYRINGE SC SCH (10:42)
[2022-10-23] MEDS: PANTOPRAZOLE 40 MG TAB PO SCH ×2 (10:42→22:03)
[2022-10-23] MEDS: methylPREDNISolone SOD SUCC 125 MG/2 ML VL IV SCH ×2 (10:43→22:04)
[2022-10-23] MEDS ORDERED: ZOLPIDEM TARTRATE 5 MG TAB PO PRN (11:30)
[2022-10-23] MEDS: DOXYCYCLINE 100MG/250ML 250 ML IV SCH ×2 (12:33→22:05)
[2022-10-23 12:53] VITALS: BP 154/108
[2022-10-23 16:57] VITALS: BP 151/96
[2022-10-23] MEDS: TAMSULOSIN HYDROCHLORIDE 0.4 MG CAP PO SCH (18:28)
[2022-10-23 22:19] VITALS: BP 123/97
[2022-10-24] MEDS: SODIUM CHLORIDE 0.9% 1,000 ML IV SCH (01:55)
[2022-10-24] MEDS: ALBUTEROL SULF 2.5 MG/0.5ML(0.5%) NEB SOLN NEB SCH ×4 (01:56→10:15)
[2022-10-24] MEDS: IPRATROPIUM BROM 0.5 MG/2.5ML INH SOL NEB SCH ×4 (01:56→10:15)
[2022-10-24 05:08] VITALS: BP 132/91
[2022-10-24] MEDS: SUCRALFATE 1 GM TAB PO SCH ×2 (06:00→10:26)
[2022-10-24 09:07] VITALS: BP 131/91
[2022-10-24] MEDS: methylPREDNISolone SOD SUCC 125 MG/2 ML VL IV SCH (10:19)
[2022-10-24] MEDS: POTASSIUM CHL 20 Meq TABLET PO SCH (10:19)
[2022-10-24] MEDS: ENOXAPARIN SOD 40 MG/0.4 ML SYRINGE SC SCH (10:19)
[2022-10-24] MEDS: CARVEDILOL 3.125 MG TAB PO SCH (10:20)
[2022-10-24] MEDS: ATORVASTATIN 20 MG TAB PO SCH (10:20)
[2022-10-24] MEDS: PANTOPRAZOLE 40 MG TAB PO SCH (10:20)
[2022-10-24] MEDS: DOXYCYCLINE 100MG/250ML 250 ML IV SCH (11:30)
[2022-10-24 12:24] VITALS: BP 125/89
== END 2022-10-24 14:55 | disposition home or self-care (01) | DRG 189 ==
LOC: ER 10:32 → TELE-WESTW 16:48 → WEST WING 20:30
PROVIDERS: ADMIT Nurse Practitioner Family; ATTEND Family Medicine
DX: J96.01 Acute respiratory failure with hypoxia (principal); J44.1 Chronic obstructive pulmonary disease with (acute) exacerbation; Z20.822 Contact with and (suspected) exposure to COVID-19; E66.01 Morbid (severe) obesity due to excess calories; I10 Essential (primary) hypertension; Z68.36 Body mass index [BMI] 36.0-36.9, adult
CPT/HCPCS: 36415; 71046; 80053; 80061; 83036; 83605; 83735; 83880; 84443; 84484; 85025; 85379; 87040; 87426; 93005; 94640; 94644; 96374; G0378; J3490

== ENCOUNTER 2024-06-20 16:28 | Inpatient (IN) | payer OTHER ==
[~2024-06-20] VITALS: Ht 160 cm; Wt 86.0 kg
[~2024-06-20 16:28] MED LIST changes: +ACET-1304 PO; +LIDO5CRE14 EX; +POTA-36 PO; -POTA10TA51 PO; -SIMV-8 PO; +SIMV20TA20 PO; -SUCR1TAB22 OR; +SUCR1TAB31 OR; -TAMS0.4C36 PO; +TAMS0.4C39 PO
--- NOTE | 2024-06-20 16:48 | ED.PDOC ---
SOB-HPI HPI Comments 68 year old male presents to the ED with chief complaint of SOB, orthopnea, edema for a week. Patient reports that he has been experiencing SOB with associated symptoms of cough, congestion, bilateral leg swelling, and runny nose for the past 3 days. Patient relays that he has history of COPD, but has no home O2. Patient denies any chest pain, except when he coughs, headache, fever, chills, dizziness, or N/V. Time Seen by MD: 16:41 Primary Care Provider: DR ALBARRAN Reviewed notes: Nurses Notes, Medications, Allergies Information Source: Patient Mode of Arrival: Ambulatory Severity: Moderate Timing: Hours Duration: Since onset Context: At Rest PE Risk Factors: None History of: COPD Prehospital treatment: None Modifying Factors: Nothing Associated Signs and Symptoms: Cough If cough with SOB: Non-Productive Past Medical History PAST MEDICAL HISTORY: Anemia, Asthma, CKF, COPD, High Lipids, HTN Surgical History: Unknown Family History Family History: Reviewed,noncontributory to illness, No family hx of Heart caitlyn, No family hx of HTN Social History Smoker: Non-Smoker Alcohol: Rarely Drugs: Denies Drug Use Lives In: Home Constitutional: denies: chills, diaphoresis, fatigue, fever, malaise, sweats, weakness, others EENTM: reports: nose congestion; denies: blurred vision, double vision, ear bleeding, ear discharge, ear drainage, ear pain, ear ringing, eye pain, eye redness, hearing loss, mouth pain, mouth swelling, nasal discharge, nose bleeding, nose pain, photophobia, tearing, throat pain, throat swelling, voice changes, others Respiratory: reports: cough, shortness of breath; denies: hemoptysis, o rthopnea, SOB at rest, SOB with excertion, stridor, wheezing, others Cardiovascular: reports: edema (Bilateral leg swelling); denies: chest pain, dizzy spells, diaphoresis, Dyspnea on exertion, irregular heart beat, left arm pain, lightheadedness, palpitations, PND, syncope, others Gastrointestinal: denies: abdomen distended, abdominal pain, blood streaked bowels, constipated, diarrhea, dysphagia, difficulty swallowing, hematemesis, melena, nausea, poor appetite, poor fluid intake, rectal bleeding, rectal pain, vomiting, others Genitourinary: denies: burning, dysuria, flank pain, frequency, hematuria, incontinence, penile discharge, penile sore, pain, testicle pain, testicle swelling, urgency, others Neurological: denies: dizziness, fainting, headache, left sided numbness, left sided weakness, numbness, paresthesia, pre-existing deficit, right sided numbness, right sided weakness, seizure, speech problems, tingling, tremors, weakness, others Musculoskeletal: denies: back pain, gout, joint pain, joint swelling, muscle pain, muscle stiffness, neck pain, others Integumetry: denies: bruises, change in color, change in hair/nails, dryness, laceration, lesions, lumps, rash, wounds, others Allergic/Immunocompromised: denies: Difficulty Healing, Frequent Infections, Hives, Itching, others Hematologic/Lymphatic: denies: anemia, blood clots, easy bleeding, easy bruising, swollen glands, others Endocrine: denies: excessive hunger, excessive sweating, excessive thirst, excessive urination, flushing, intolerance to cold, intolerance to heat, unexplained weight gain, unexplained weight loss, others Psychiatric: denies: anxiety, bipolar disorder, depression, hopeless, panic disorder, schizophrenia, sleepless, suicidal, others All Other Systems: Reviewed and Negative Physical Exam General Appearance: No Apparent Distress, Normal HEENT: Normal ENT Inspection, PERRL/EOMI Neck: Full Range of Motion, Non-Tender, Normal, Normal Inspection Respiratory: Chest Non-Tender, Lungs Clear, No Accessory Muscle Use, No Respiratory Distress, Other (Breath sounds distant but equal) Cardiovascular: No Edema, No JVD, No Murmur, No Gallop, Normal Peripheral Pulses, Regular Rate/Rhythm Breast Exam: Deferred Gastrointestinal: No Organomegaly, Non Tender, No Pulsatile Mass, Normal Bowel Sounds, Soft Genitalia: Deferred Pelvic: Deferred Rectal: Deferred Extremities: No calf tenderness, Normal capillary refill, Normal range of motion, Non-tender, Pedal edema (Bilateral) Musculoskeletal : Apperance: Normal Neurologic: Alert, ostomy nurse II-XII nml as Tested, No Motor Deficits, Normal Affect, Normal Mood, No Sensory Deficits Cerebellar Function: Normal Reflexes: Normal Skin: Dry, Normal Color, Warm Lymphatic: No Adenopathy EKG EKG : Pulse Rate (adult): 93 [place]: Normal Cardiac Rhythm: NSR Block: None Hypertrophy: None ST: Normal Was a procedure done? Was a procedure done?: No Differential Dx Differential Diagnosis: Anxiety, Asthma, Bronchitis, CHF, COPD, Hyperventilation, Myocardial infarction, Panic Attack, Pneumonia, Pneumothorax, Pulmonary Embolism, Respiratory Distress, URI X-Ray, Labs, Meds, VS Vital Signs Date Time Temp Pulse Resp B/P (MAP) Pulse Ox O2 Delivery O2 Flow Rate FiO2 06/20/24 16:43 93 06/20/24 16:41 98.9 96 20 149/116 (127) 9 Lab Test 06/20/24 17:27 Range/Units White Blood Count 8.7 4.4-10.8 10^3/uL Red Blood Count 5.44 4.5-5.90 10^6/uL Hemoglobin 14.8 13.5-17.5 g/dL Hematocrit 44.8 41.0-53.0 % Mean Corpuscular Volume 82.3 80.0-100.0 fL Mean Corpuscular Hemoglobin 27.1 L 28.0-32.0 pg Mean Corpuscular Hemoglobin Concent 32.9 32.0-36.0 g/dL Red Cell Distribution Width 16.3 H 11.8-14.3 % Platelet Count 206 140-450 10^3/uL Mean Platelet Volume 6.9 6.9-10.8 fL Neutrophils (%) (Auto) 86.9 H 37.0-80.0 % Lymphocytes (%) (Auto) 5.7 L 10.0-50.0 % Monocytes (%) (Auto) 7.3 0.0-12.0 % Eosinophils (%) (Auto) 0.0 0.0-7.0 % Basophils (%) (Auto) 0.1 0.0-2.0 % Neutrophils # (Auto) 7.6 1.6-8.6 10 ^3/uL Lymphocytes # (Auto) 0.5 0.4-5.4 10 ^3/uL Monocytes # (Auto) 0.6 0-1.3 10 ^3/uL Eosinophils # (Auto) 0 0-0.8 10 ^3/uL Basophils # (Auto) 0 0-0.2 10 ^3/uL Nucleated Red Blood Cells 0.0 % Sodium Level 141 136-145 mmol/L Potassium Level 4.4 3.5-5.1 mmol/L Chloride Level 103 98-107 mmol/L Carbon Dioxide Level 33 H 20-31 mmol/L Anion Gap 5 5-15 Blood Urea Nitrogen 21 9-23 mg/dL Creatinine 0.99 0.700-1.30 mg/dL Glomerular Filtration Rate Calc 84 >90 mL/min BUN/Creatinine Ratio 21.2 H 10.0-20.0 Serum Glucose 113 H 74-106 mg/dL Calcium Level 9.7 8.7-10.4 mg/dL Troponin I High Sensitivity 57 *H </=54 ng/L B-Type Natriuretic Peptide 120.11 0-100 pg/mL Time of 1ST Reevaluation: 17:41 Reevaluation 1ST: Unchanged Time of 2ND Reevaluation: 18:51 Reevaluation 2ND: Unchanged Patient Education/Counseling: Diagnosis, Treatment, Prognosis, Need For Follow Up Family Education/Counseling: No Family Present Additional Information - I reviewed the following notes from patient's past medical encounters: 10/22/22 for chronic COPD exacerbation - The following tests were ordered, and results were reviewed by me: CXR, EKG, CBC, BMP, BNP, Troponin - I reviewed and agreed with the following test results read by other provider: CXR - I discussed treatments and results with medical personnel. pt has orthopnea, pedal edema, a cough with cp, but his trop is mildly elevated with a normal renal function. i am concerned about the possibility of anginal equivalent with unstable angina. viral cardiomyopathy is also a consideration. pt will be admitted for cardiac eval. Departure 1 Departure Time of Disposition: 18:54 Impression: Primary Impression: Anginal equivalent Additional Impressions: Viral syndrome Pedal edema Elevated troponin I level Disposition: ADMITTED INPATIENT Admit to: [facility] Condition: Stable Discharged With: Self Critical Care Note Critical Care Time?: Yes (55 min-critical care time only) Critical care comment: due to concerns for deterioration of the patient's condition, the care required my highest level of attention and readiness to respond. i assessed the patient's condition, reviewed any relavent records, ordered the proper tests and treatments, reassessed for results and response to treatments, communicated with medical personnel and consultants, and formulated a plan of care. total critical care time excludes any procedures Stability Stability form required: No Heart Score Heart Score: Heart Score Response (Comments) Value History Moderate Suspicious 1 EKG Normal 0 Age 45-64 1 Risk Factors >3 or Hx ASHD 2 Troponin 1-2 x's Normal limit 1 Total 5 I personally scribed for TARYN OVERTON MD ([email or web address]) on 06/20/24 at 16:48. Electronically submitted by Derrick Gamez ([email or web address]). TARYN OVERTON MD Jun 20, 2024 16:48
--- NOTE | 2024-06-20 17:54 | DVH ---
EXAM: XY CHEST PORTABLE CLINICAL HISTORY: sob TECHNIQUE: Single AP view of the chest WID: COMPARISON: 10/22/2022 FINDINGS: Lines and tubes: None Chest: The heart size and pulmonary vasculature is within normal limits. Calcified plaque projects over the aortic arch No pleural effusion, pneumothorax, or consolidation. Biapical pleural-parenchymal scarring The osseous structures are grossly intact. IMPRESSION: No acute cardiopulmonary abnormality.
[2024-06-20 18:07] LABS: Basophils # (auto) 0 10 ^3/uL (0-0.2); Basophils % (auto) 0.1 % (0.0-2.0); Chloride 103 mmol/L (98-107); Eosinophils # (auto) 0 10 ^3/uL (0-0.8); Hematocrit 44.8 % (41.0-53.0); Hemoglobin 14.8 g/dL (13.5-17.5); Lymphocytes # (auto) 0.5 10 ^3/uL (0.4-5.4); Lymphocytes % (auto) 5.7 % (10.0-50.0); Mean Corpuscular Hemoglobin 27.1 pg (28.0-32.0); Mean Corpuscular Hgb Conc. 32.9 g/dL (32.0-36.0); Mean Corpuscular Volume 82.3 fL (80.0-100.0); Monocytes # (auto) 0.6 10 ^3/uL (0-1.3); Monocytes % (auto) 7.3 % (0.0-12.0); Neutrophils # (auto) 7.6 10 ^3/uL (1.6-8.6); Neutrophils % (auto) 86.9 % (37.0-80.0); Platelet Count (auto) 206 10^3/uL (140-450); Potassium 4.4 mmol/L (3.5-5.1); Red Blood Cells 5.44 10^6/uL (4.5-5.90); Red Cell Distribution Width 16.3 % (11.8-14.3); Sodium 141 mmol/L (136-145); White Blood Cell 8.7 10^3/uL (4.4-10.8)
[2024-06-20 18:08] LABS: Anion Gap 5 (5-15); Calcium 9.7 mg/dL (8.7-10.4)
[2024-06-20 18:10] LABS: Carbon Dioxide 33 mmol/L (20-31)
[2024-06-20 18:13] LABS: BUN/Creatinine Ratio 21.2 (10.0-20.0); Blood Urea Nitrogen 21 mg/dL (9-23)
[2024-06-20 18:17] LABS: Glucose 113 mg/dL (74-106)
[2024-06-20] MEDS: ASPirin 325 MG TAB PO ONE (19:00)
[2024-06-20] MEDS: NTG 0.1MG/HR TOPICAL PATCH TD ONE (19:00)
[2024-06-20] MEDS ORDERED: HYDROcodone-ACET 5/325MG TAB PO PRN (20:00)
[2024-06-20] MEDS ORDERED: ACETAMINOPHEN 325 MG TAB PO PRN (20:00)
[2024-06-20] MEDS ORDERED: ONDANSETRON HCL 4 MG/2 ML VIAL IV PRN (20:00)
[2024-06-20] MEDS ORDERED: DOCUSATE SOD 100 MG CAP PO PRN (20:00)
[2024-06-20] MEDS ORDERED: hydrALAZINE HCL 20 MG/ML VL IV PRN (20:00)
--- NOTE | 2024-06-20 20:28 | DVHHP2 ---
History of Present Illness Reason for Visit: COPD with acute exacerbation History of Present Illness The patient is a 68-year-old male with past medical history of anemia, asthma, COPD, hyperlipidemia, hypertension, and CKF who presented to [facility] ED with complaint of shortness of breaths. Patient reports symptoms progressively get worse with weakness, orthopnea, lower extremity swelling, cough, congestion, runny nose for the past 3 days, getting worse that prompted this visit. Patient was seen and evaluated in the ED, laboratory data shows WBC 8.7, platelets 206, sodium 141, potassium 4.4, BUN 21, creatinine 0.99, GFR 84, glucose 113, BNP 120.11, troponin 57, blood pressure 149/116, heart rate 93, temperature 98.9 F, O2 saturation 96% on oxygen. Please see medication orders section in the computer. On my assessment, patient denied chest pain, no headache, no dizziness, no abdominal pain, no diarrhea, nausea, no vomiting, fever, no chills. Patient was admitted for further evaluation and medical management. Past Medical History Anemia, Asthma, CKF, COPD, High Lipids, HTN Past Surgical History Unknown Family History Reviewed, noncontributory to the management of this case. Past Social History The patient lives at home, denies smoking, alcohol or illicit drugs abuse. Review of Systems Constitutional: No: Fever, Chills, Sweats, Weakness, Malaise, Other Eyes: No: Pain, Vision change, Conjunctivae inflammation, Eyelid inflammation, Other, Redness ENT: Nose congestion; No: Ear pain, Ear discharge, Nose pain, Nose discharge, Mouth pain, Mouth swelling, Throat pain, Throat swelling, Other Respiratory: Cough, Shortness of breath; No: Dry, SOB with excertion, Wheezing, Hemoptysis, Pleuritic Pain, Sputum, Wheezing, Other Cardiovascular: Edema, Other (Bilateral leg swelling); No: Chest Pain, Palpitations, Orthopnea, Paroxysmal Noc. Dyspnea, Lt Headedness Gastrointestinal: No: Nausea, Vomiting, Abdominal Pain, Diarrhea, Constipation, Melena, Hematochezia, Other Genitourinary: No Dysuria, No Frequency, No Incontinence, No Hematuria, No Retention, No Other Musculoskeletal: No: other, neck pain, shoulder pain, arm pain, back pain, hand pain, leg pain, foot pain Skin: No: Rash, Lesions, Jaundice, Bruising, Other Neurological: No: Weakness, Numbness, Incoordination, Change in speech, Confusion, Seizures, Other Allergies: Coded Allergies: Gabapentin (Verified Allergy, Unknown, 02/26/18) Medications Current Medications Medications Dose Ordered Sig/Enoch Route Start Time Stop Time Status Last Admin Dose Admin Aspirin 81 mg DAILY PO 06/21/24 10:00 Carvedilol 3.125 mg Q12HR PO 06/20/24 22:00 Hydralazine HCl 10 mg Q6HP PRN IV 06/20/24 20:00 Albuterol 2.5 mg Q4HPRN PRN NEB 06/20/24 20:00 Ipratropium [place] 0.5 mg Q4HPRN PRN NEB 06/20/24 20:00 Furosemide 40 mg DAILY IV 06/21/24 10:00 Atorvastatin Calcium 20 mg HS PO 06/20/24 22:00 Sodium Chloride 10 ml Q8HR IV 06/20/24 22:00 Acetaminophen/ Hydrocodone Bitart 1 tab Q4HP PRN PO 06/20/24 20:00 Ondansetron HCl 4 mg Q4HP PRN IV 06/20/24 20:00 Docusate Sodium 100 mg BIDPRN PRN PO 06/20/24 20:00 Acetaminophen 650 mg Q6HP PRN PO 06/20/24 20:00 Exam Vital Signs Vital Signs Date Time Temp Pulse Resp B/P (MAP) Pulse Ox O2 Delivery O2 Flow Rate FiO2 06/20/24 18:59 93 06/20/24 16:41 98.9 20 149/116 (127) 9 General Appearance: Alert, Oriented X3, Cooperative, No acute distress HEENT: Atraumatic, PERRLA, EOMI, Mucous membr. moist/pink Respiratory: Clear to auscultation, Normal air movement Cardiovascular: Regular rate, Normal S1, Normal S2, No murmurs Abdominal: Normal bowel sounds, Soft, No tenderness, No hepatospenomegaly, No masses Extremities: No clubbing, No cyanosis, No edema, Normal pulses, No tenderness/swelling Skin: No rashes, No breakdown, No significant lesion Neuro: Normal speech, Normal tone, Sensation intact, Cranial nerves 3-12 NL, Reflexes 2+, Other (Generalized weakness) Psych/Mental Status: Mental status NL, Mood NL Labs/Xrays Labs Test 06/20/24 19:31 06/20/24 17:27 Range/Units Troponin I High Sensitivity 49 </=54 ng/L White Blood Count 8.7 4.4-10.8 10^3/uL Red Blood Count 5.44 4.5-5.90 10^6/uL Hemoglobin 14.8 13.5-17.5 g/dL Hematocrit 44.8 41.0-53.0 % Mean Corpuscular Volume 82.3 80.0-100.0 fL Mean Corpuscular Hemoglobin 27.1 L 28.0-32.0 pg Mean Corpuscular Hemoglobin Concent 32.9 32.0-36.0 g/dL Red Cell Distribution Width 16.3 H 11.8-14.3 % Platelet Count 206 140-450 10^3/uL Mean Platelet Volume 6.9 6.9-10.8 fL Neutrophils (%) (Auto) 86.9 H 37.0-80.0 % Lymphocytes (%) (Auto) 5.7 L 10.0-50.0 % Monocytes (%) (Auto) 7.3 0.0-12.0 % Eosinophils (%) (Auto) 0.0 0.0-7.0 % Basophils (%) (Auto) 0.1 0.0-2.0 % Neutrophils # (Auto) 7.6 1.6-8.6 10 ^3/uL Lymphocytes # (Auto) 0.5 0.4-5.4 10 ^3/uL Monocytes # (Auto) 0.6 0-1.3 10 ^3/uL Eosinophils # (Auto) 0 0-0.8 10 ^3/uL Basophils # (Auto) 0 0-0.2 10 ^3/uL Nucleated Red Blood Cells 0.0 % Sodium Level 141 136-145 mmol/L Potassium Level 4.4 3.5-5.1 mmol/L Chloride Level 103 98-107 mmol/L Carbon Dioxide Level 33 H 20-31 mmol/L Anion Gap 5 5-15 Blood Urea Nitrogen 21 9-23 mg/dL Creatinine 0.99 0.700-1.30 mg/dL Glomerular Filtration Rate Calc 84 >90 mL/min BUN/Creatinine Ratio 21.2 H 10.0-20.0 Serum Glucose 113 H 74-106 mg/dL Calcium Level 9.7 8.7-10.4 mg/dL B-Type Natriuretic Peptide 120.11 0-100 pg/mL PATIENT: DOYLE ARAIZA ACCT: [id number] UNIT: [id number] : 1955 LOC: ER ROOM / BED: / AGE / SEX: 68 / M ADM STATUS: REG ER SERVICE [id number] ORDERING PHYSICIAN: TARYN OVERTON MD PROCEDURE(s): CXRP - CHEST PORTABLE REASON: sob ORDER NUMBER(s): [id number], ACCESSION NUMBER(s): [id number] EXAM: XY CHEST PORTABLE CLINICAL HISTORY: sob TECHNIQUE: Single AP view of the chest WID: COMPARISON: 10/22/2022 FINDINGS: Lines and tubes: None Chest: The heart size and pulmonary vasculature is within normal limits. Calcified plaque projects over the aortic arch No pleural effusion, pneumothorax, or consolidation. Biapical pleural- parenchymal scarring The osseous structures are grossly intact. IMPRESSION: No acute cardiopulmonary abnormality. Assessment/Plan Assessment/Plan Anginal equivalent Viral syndrome Pedal edema Elevated troponin I level Acute respiratory distress Plan 1. Admit to telemetry unit 2. Breathing treatment 3. Pain control management 4. Management of fluids and electrolytes 5. Consultation for hospitalist 6. Diagnostic tests chest x-ray 7. DVT prophylaxis-on aspirin 8. Repeat labs CBC, CMP in a.m. 9. Continue with current medical management 10. Treatment plan discussed with patient and RN. Patient verbalized understanding. Plan discussed with: Patient, Other (RN) My Orders Orders - GUSTABO HOWARD DNP Procedure Category Date Status Time Aspirin Tablet PHA 06/21/24 In Process 10:00 Carvedilol Tablet PHA 06/20/24 In Process (Coreg Tablet) 22:00 Hydralazine Injection PHA 06/20/24 In Process (Apresoline Inject 20:00 Albuterol Medneb PHA 06/20/24 In Process (Ventolin Medneb) 20:00 Ipratropium Medneb PHA 06/20/24 In Process (Atrovent Medneb) 20:00 Furosemide Injection PHA 06/21/24 In Process (Lasix Injection) 10:00 Atorvastatin (Lipitor) PHA 06/20/24 In Process 22:00 Allergies ALEC 06/20/24 In Process 19:58 Code Status CODE 06/20/24 Transmitted 19:58 Sodium Chloride Lock PHA 06/20/24 In Process (Saline Lock Ns) 22:00 Oxygen Per Hour RT 06/20/24 Transmitted 19:58 Hydrocodone-Acet PHA 06/20/24 In Process 5/325mg Tab ([place] 20:00 Ondansetron Hcl PHA 06/20/24 In Process (Zofran) 20:00 Docusate Sodium PHA 06/20/24 In Process Capsule (Colace 20:00 Complete Blood Count LAB 06/21/24 Verified 04:00 Comprehensive LAB 06/21/24 Verified Metabolic Panel 04:00 Cardiac DIET 06/21/24 Transmitted Diet-2gna,Lofat,Lochol Breakfast Condition: Serious ALEC 06/20/24 In Process 19:58 Acetaminophen Tablet PHA 06/20/24 In Process (Tylenol Tablet) 20:00 Bedrest With Bathroom ALEC 06/20/24 In Process Privileg 19:58 Sequential ALEC 06/20/24 In Process Compression Device Admit ADMIT 06/20/24 Verified 20:26 Nitroglycerin PHA 06/20/24 Verified Sublingual (Ntrostat 20:[address] [facility] 06/20/24 Verified Injection 20:30 Notify Md Of Changes [facility] 06/20/24 Verified From Base 20:26 Tobacco Drummer For [facility] 06/20/24 Verified 24 Hours 20:26 Emergency Dysrhythmia [facility] 06/20/24 Verified Protocol 20:26 Rhythm Strips Once [facility] 06/20/24 Verified Every Shift 20:26 Oxygen By Nasal RT 06/20/24 Verified Cannula 20:26 Problem List: (1) Anginal equivalent (2) Elevated troponin I level (3) Pedal edema (4) Viral syndrome (5) Acute respiratory distress Date of Service: Jun 20, 2024 Billing Provider: GUSTABO HOWARD DNP Common Visit Codes: 21170-[id number] INP/OBS CARE (HIGH) GUSTABO HOWARD DNP Jun 20, 2024 20:27
[2024-06-20] MEDS ORDERED: MORPHINE SULFATE INJ 2 MG/ml SYRG IV PRN (20:30)
[2024-06-20] MEDS ORDERED: NITROGLYCERIN 0.4 MG SL TAB SL PRN (20:30)
[2024-06-20] MEDS: CARVEDILOL 3.125 MG TAB PO SCH (22:00)
[2024-06-20] MEDS: SODIUM CHLOR 0.9% PF (SALINE LOCK) 10ML VIAL/SYR IV SCH (22:00)
[2024-06-20] MEDS: ATORVASTATIN 20 MG TAB PO SCH (22:00)
[2024-06-21] VITALS (7 sets, daily range): BP systolic 109–125; BP diastolic 65–90; PULSE 78–108; RESP 18–22; TEMP 98.2–98.9; O2SAT 95–100
[2024-06-21] MEDS: IPRATROPIUM BROM 0.5 MG/2.5ML INH SOL NEB PRN (04:34)
[2024-06-21] MEDS: ALBUTEROL SULF 2.5 MG/0.5ML(0.5%) NEB SOLN NEB PRN (04:34)
[2024-06-21 06:17] LABS: Basophils # (auto) 0 10 ^3/uL (0-0.2); Basophils % (auto) 0.1 % (0.0-2.0); Eosinophils # (auto) 0 10 ^3/uL (0-0.8); Hematocrit 43.3 % (41.0-53.0); Lymphocytes # (auto) 0.9 10 ^3/uL (0.4-5.4); Lymphocytes % (auto) 9.5 % (10.0-50.0); Mean Corpuscular Hgb Conc. 32.3 g/dL (32.0-36.0); Mean Corpuscular Volume 83.6 fL (80.0-100.0); Monocytes # (auto) 1.7 10 ^3/uL (0-1.3); Monocytes % (auto) 17.5 % (0.0-12.0); Neutrophils # (auto) 7.1 10 ^3/uL (1.6-8.6); Neutrophils % (auto) 72.9 % (37.0-80.0); Nucleated Red Blood Cells % 0.1 %; Platelet Count (auto) 199 10^3/uL (140-450); Red Blood Cells 5.18 10^6/uL (4.5-5.90); Red Cell Distribution Width 16.6 % (11.8-14.3); White Blood Cell 9.7 10^3/uL (4.4-10.8)
[2024-06-21 06:28] LABS: Alanine Aminotransferase 14 U/L (7-40); Alkaline Phosphatase 74 U/L (46-116); Anion Gap 8 (5-15); Aspartate Aminotransferase 18 U/L (13-40); BUN/Creatinine Ratio 19.4 (10.0-20.0); Bilirubin, Total 0.4 mg/dL (0.2-1.0); Calcium 9.2 mg/dL (8.7-10.4); Chloride 102 mmol/L (98-107); Glucose 94 mg/dL (74-106); Potassium 3.8 mmol/L (3.5-5.1); Sodium 142 mmol/L (136-145); Total Protein 6.2 g/dL (5.7-8.2)
[2024-06-21 06:34] LABS: Blood Urea Nitrogen 24 mg/dL (9-23); Carbon Dioxide 32 mmol/L (20-31)
[2024-06-21] MEDS: ASPirin 81 mg TAB PO SCH (10:11)
[2024-06-21] MEDS: FUROSEMIDE 40 MG/4 ML VIAL IV SCH (12:26)
[2024-06-21] MEDS: cefTRIAXone 1GM/50ML D5W 50 ML IV ONE (14:42)
[2024-06-21 15:49] LABS: COVID19 ANTIGEN SOFIA FIA NEGATIVE (NEGATIVE)
[2024-06-21 16:05] LABS: Rapid Influenza A Positive (Negative); Rapid Influenza B Negative (Negative)
[2024-06-21] MEDS: AZITHROMYCIN 500MG/ 250ML 250 ML IV ONE (16:45)
--- NOTE | 2024-06-21 23:46 | DVHDS2 ---
Discharge Summary Date of Admission Jun 20, 2024 at 20:26 Date of Discharge: Jun 21, 2024 Labs/Diagnostic Data: Laboratory Results Test 06/21/24 13:45 06/21/24 05:32 06/20/24 21:30 06/20/24 17:27 Influenza Type A Antigen Positive (Negative) Influenza Type B Antigen Negative (Negative) SARS-CoV-2 Antigen (Rapid) Negative (NEGATIVE) White Blood Count 9.7 10^3/uL (4.4-10.8) Red Blood Count 5.18 10^6/uL (4.5-5.90) Hemoglobin 14.0 g/dL (13.5-17.5) Hematocrit 43.3 % (41.0-53.0) Mean Corpuscular Volume 83.6 fL (80.0-100.0) Mean Corpuscular Hemoglobin 27.0 pg (28.0-32.0) Mean Corpuscular Hemoglobin Concent 32.3 g/dL (32.0-36.0) Red Cell Distribution Width 16.6 % (11.8-14.3) Platelet Count 199 10^3/uL (140-450) Mean Platelet Volume 7.0 fL (6.9-10.8) Neutrophils (%) (Auto) 72.9 % (37.0-80.0) Lymphocytes (%) (Auto) 9.5 % (10.0-50.0) Monocytes (%) (Auto) 17.5 % (0.0-12.0) Eosinophils (%) (Auto) 0.0 % (0.0-7.0) Basophils (%) (Auto) 0.1 % (0.0-2.0) Neutrophils # (Auto) 7.1 10 ^3/uL (1.6-8.6) Lymphocytes # (Auto) 0.9 10 ^3/uL (0.4-5.4) Monocytes # (Auto) 1.7 10 ^3/uL (0-1.3) Eosinophils # (Auto) 0 10 ^3/uL (0-0.8) Basophils # (Auto) 0 10 ^3/uL (0-0.2) Nucleated Red Blood Cells 0.1 % Sodium Level 142 mmol/L (136-145) Potassium Level 3.8 mmol/L (3.5-5.1) Chloride Level 102 mmol/L (98-107) Carbon Dioxide Level 32 mmol/L (20-31) Anion Gap 8 (5-15) Blood Urea Nitrogen 24 mg/dL (9-23) Creatinine 1.24 mg/dL (0.700-1.30) Glomerular Filtration Rate Calc 64 mL/min (>90) BUN/Creatinine Ratio 19.4 (10.0-20.0) Serum Glucose 94 mg/dL (74-106) Calcium Level 9.2 mg/dL (8.7-10.4) Total Bilirubin 0.4 mg/dL (0.2-1.0) Aspartate Amino Transferase (AST) 18 U/L (13-40) Alanine Aminotransferase (ALT) 14 U/L (7-40) Alkaline Phosphatase 74 U/L (46-116) Total Protein 6.2 g/dL (5.7-8.2) Albumin 4.0 g/dL (3.2-4.8) Troponin I High Sensitivity 51 ng/L (</=54) B-Type Natriuretic Peptide 120.11 pg/mL (0-100) Other Laboratory Tests 06/21/24 05:32 Brief Hx & Hospital Course: 68-year-old male Mr. Juarez with past medical history of asthma COPD, COPD unlikely as patient has never smoked (per patient), hypertension, hyperlipidemia, CKD, CHF?. Patient presented with shortness of Breath and had recent URI symptoms. Continues to have some URI symptoms. On labs patient has sirs criteria, has NSTEMI, TELLO. On exam patient appears to have rales, pitting edema. Patient fits diagnosis of acute on chronic CHF exacerbation undefined systolic or diastolic. Patient was started on IV Lasix. After hours on evaluation appears patient has left AMA due to reasons described in RN notes. Condition at Discharge: Undetermined Final Diagnosis/Problems List Acute on chronic CHF exacerbation, unspecified systolic or diastolic; NSTEMI; TELLO; history of asthma; history of CKD; hypertension; hyperlipidemia; sirs with end-organ damage Discharge Disposition: AMA Discharge Statement: "Patient was advised to return to the ER or call 911 if any headaches, dizziness, shortness of breath, chest pain, abdominal pain, bleeding, fevers, or worsening of medical condition. Patient was counseled about treatment plan, medications, possible side effects, patientverbalized understanding. All questions were answered to the best of my ability. This discharge took greater then 30 minutes in planning, reviewing documentation, counseling the patient, and discussing with other team members." ASSESSMENT ASSESSMENT Assessment Acute on chronic CHF exacerbation, unspecified systolic or diastolic; NSTEMI; TELLO; history of asthma; history of CKD; hypertension; hyperlipidemia; sirs with end-organ damage Date of Service: Jun 21, 2024 Billing Provider: CHIQUITA TIAN MD Common Visit Codes: NOT BILLABLE CHIQUITA TIAN MD Jun 21, 2024 23:46
[2024-06-22] MEDS ORDERED: cefTRIAXone 1GM/50ML D5W 50 ML IV SCH (09:00)
[2024-06-22] MEDS ORDERED: AZITHROMYCIN 500MG/ 250ML 250 ML IV SCH (10:00)
--- NOTE | 2024-06-23 13:16 | ECG ---
[facility] Test Date: 2024-06-20 Test Time: 16:43:42 Pat Name: DOYLE ARAIZA Department: er Room: [address] [place] [address] A Gender: M [employer] Floor Leader: dr FLORES: 1955 Requested By: TARYN OVERTON Order Number: [id number] Reading MD: Jose Almanza Measurements Intervals [place] Rate: 93 P: 69 DC: 126 QRS: 7 QRSD: 120 T: 52 QT: 365 QTc: 454 Interpretive Statements Sinus rhythm Paired ventricular premature complexes Incomplete left bundle branch block Baseline wander in lead(s) I,III,aVL Electronically Signed On 06-23-2024 17:54:49 PST by Jose Almanza Please click the below link to view image of tracing.
== END 2024-06-21 17:28 | disposition left against medical advice (07) | DRG 280 ==
LOC: ER 16:28 → TELE 20:26
PROVIDERS: ADMIT Nurse Practitioner Family; ATTEND Nurse Practitioner Family
DX: I13.0 Hypertensive heart and chronic kidney disease with heart failure and stage 1 through stage 4 chronic kidney disease, or unspecified chronic kidney disease (principal); I50.33 Acute on chronic diastolic (congestive) heart failure; I21.A1 Myocardial infarction type 2; N17.9 Acute kidney failure, unspecified; E78.5 Hyperlipidemia, unspecified; Z20.822 Contact with and (suspected) exposure to COVID-19; Z53.29 Procedure and treatment not carried out because of patient's decision for other reasons; B34.9 Viral infection, unspecified; I50.9 Heart failure, unspecified; N18.9 Chronic kidney disease, unspecified
CPT/HCPCS: 36415; 71045; 80048; 80053; 83880; 84484; 85025; 87426; 87804; 93005; 94640; 99291; G0378